=== PATIENT | male | born 1975 | race Caucasian/White ===

== ENCOUNTER 2022-10-08 16:10 | Inpatient (IN) | payer SELFPAY ==
[2022-10-08 16:41] LABS: #Eosinphils 0.3 thou/uL (0.0-0.7); #Lymphocytes 2.8 thou/uL (1.20-3.40); #Monocytes 0.8 thou/uL (0.11-0.59); #Neutrophils 4.3 thou/uL (1.40-6.50); %Basophils 0.5 % (0.0-1.0); %Eosinophils 4.1 % (0.0-10.0); %Lymphocytes 33.4 % (21.0-51.0); %Monocytes 10.1 % (0.0-10.0); %Neutrophils 51.8 % (42.0-75.0); Hemoglobin 15.5 g/dL (14.0-18.0); Mean Corpuscular Hemoglobin 32.7 pg (27.0-31.0); Mean Corpuscular Volume 98.9 fl (78.0-98.0); Mean Platelet Volume 7.9 fL (7.4-10.4); Platelet Count 193 10x3/uL (130-400); RBC Distribution Width 12.3 % (11.5-14.5); Red Blood Cell (RBC) Count 4.74 mill/uL (4.70-6.10); White Blood Cell (WBC) Count 8.2 10x3/uL (4.8-10.8)
[2022-10-08 16:53] LABS: PTT 35.1 sec (22.9-36.1); Prothrombin Time 13.1 sec (12.0-14.7)
[2022-10-08 17:12] LABS: ALT (SGPT) 8 U/L (8-55); AST (SGOT) 17 U/L (5-34); Acetaminophen Less than 10.0 mcg/mL (10.0-30.0); Albumin 4.3 g/dL (3.5-5.0); Alcohol Less than 10 mg/dL (Less than 10); Alkaline Phosphatase 63 U/L (40-110); Anion Gap 12 mmol/L (10-20); BUN (Urea Nitrogen) 12 mg/dL (8.9-20.6); Bilirubin, Total 0.3 mg/dL (0.2-1.2); CK (CPK) 117 U/L (30-200); Calc. Creatinine Clearance 0 mL/min (70-130); Calcium 8.8 mg/dL (7.8-10.44); Carbon Dioxide 22 mmol/L (22-29); Chloride 107 mmol/L (98-107); Estimated GFR 82; Globulin 2.6 g/dL (2.4-3.5); Glucose 96 mg/dL (70-105); Potassium 3.8 mmol/L (3.5-5.1); Protein, Total 6.9 g/dL (6.0-8.3); Salicylate Less than 8.0 mg/dL (15.0-30.0); Sodium 137 mmol/L (136-145)
[2022-10-08 17:13] LABS: Bilirubin Negative (Negative); Blood, Urine Negative (Negative); Clarity Clear (Clear); Glucose, Urine (Dipstick) Normal (Negative); Ketone, Urine Negative (Negative); Leukocyte Negative Leu/uL (Negative); Nitrite Negative (Negative); Protein, Urine (Dipstick) Negative (Neg-Trace); Specific Gravity, Urine 1.007 (1.002-1.036); Urobilinogen Normal mg/dL (Less than 2)
[2022-10-08 17:22] LABS: Amphetamine Not Detected (NotDetected); Barbiturates Screen Not Detected (NotDetected); Benzodiazepine Screen Not Detected (NotDetected); Cocaine Metabolite Screen Not Detected (NotDetected); Methadone Not Detected (NotDetected); Methamphetamine Not Detected (NotDetected); Opiate Screen Not Detected (NotDetected); Oxycodone Screen Not Detected (NotDetected); Phencyclidine (PCP) Not Detected (NotDetected); THC/Cannabinoid Screen Not Detected (NotDetected); Tricyclic Screen Not Detected (NotDetected)
[2022-10-08 19:03] LABS: SARS-CoV-2 NAA Rapid Test Not Detected (NotDetected)
[2022-10-08] MEDS ORDERED: NOREPINEPHRINE 8 MG/250 ML-D5W 250 ML ONE (19:03)
[2022-10-08] MEDS ORDERED: Ondansetron PF 4 MG/2 ML Vial IVP PRN (19:28)
[2022-10-08] MEDS ORDERED: Acetaminophen 325 MG TAB PO PRN (19:28)
[2022-10-08] MEDS ORDERED: Thiamine HCl 200 MG/2 ML VIAL SLOW IVP SCH (19:45)
[2022-10-08] MEDS ORDERED: niCARdipine 25 MG/10 ML VIAL ONE (20:01)
[2022-10-08] MEDS ORDERED: Labetalol HCl 100 MG/20 ML VIAL ONE (20:17)
[2022-10-08] MEDS: niCARdipine 25 MG in Sodium Chloride 0.9% 250 ML 250 ML IVPB PRN (21:51)
[2022-10-08] MEDS: Famotidine 20 MG TAB PO SCH (21:58)
[2022-10-09] MEDS: niCARdipine 25 MG in Sodium Chloride 0.9% 250 ML 250 ML IVPB PRN ×3 (00:58→04:45)
[2022-10-09 05:59] VITALS: BMI 21.7
[2022-10-09 07:45] LABS: Anion Gap 11 mmol/L (10-20); BUN (Urea Nitrogen) 8 mg/dL (8.9-20.6); Calc. Creatinine Clearance 113 mL/min (70-130); Calcium 8.8 mg/dL (7.8-10.44); Carbon Dioxide 22 mmol/L (22-29); Chloride 110 mmol/L (98-107); Cholesterol 145 mg/dl (< 200 Desired); Estimated GFR 106; Glucose 108 mg/dL (70-105); HDL Cholesterol 71 mg/dL (>60 Neg Risk); LDL Cholesterol, Calculated 65 mg/dL; Sodium 139 mmol/L (136-145); Triglycerides 44 mg/dL (Less than 150)
[2022-10-09 07:55] LABS: #Eosinphils 0.3 thou/uL (0.0-0.7); #Lymphocytes 1.8 thou/uL (1.20-3.40); #Monocytes 0.7 thou/uL (0.11-0.59); #Neutrophils 7.9 thou/uL (1.40-6.50); %Basophils 0.4 % (0.0-1.0); %Eosinophils 2.5 % (0.0-10.0); %Monocytes 6.8 % (0.0-10.0); %Neutrophils 73.3 % (42.0-75.0); Hemoglobin 15.5 g/dL (14.0-18.0); Mean Corpuscular HGB CONC 32.4 g/dL (32.0-36.0); Mean Corpuscular Hemoglobin 32.3 pg (27.0-31.0); Mean Corpuscular Volume 99.6 fl (78.0-98.0); Mean Platelet Volume 8.1 fL (7.4-10.4); Platelet Count 200 10x3/uL (130-400); RBC Distribution Width 12.4 % (11.5-14.5); White Blood Cell (WBC) Count 10.7 10x3/uL (4.8-10.8)
[2022-10-09 08:10] LABS: Hemoglobin A1c 4.9 % (4.0-6.0)
[2022-10-09] MEDS: Folic Acid 1 MG TAB PO SCH (08:23)
[2022-10-09] MEDS: Famotidine 20 MG TAB PO SCH ×2 (08:23→20:18)
[2022-10-09] MEDS: Thiamine 100 MG TAB PO SCH (08:24)
[2022-10-09] MEDS: Multivitamin W/ Minerals 1 TAB PO SCH (08:24)
[2022-10-09] MEDS: Lisinopril 5 MG TAB PO SCH ×2 (08:24→10:04)
[2022-10-09] MEDS: Labetalol HCl 100 MG/20 ML VIAL SLOW IVP PRN ×3 (09:12→22:22)
[2022-10-09] MEDS: Dextrose 5 % And 0.9 % NaCl 1,000 ML IV SCH ×2 (12:54→22:21)
[2022-10-09] MEDS ORDERED: Electrolyte Replacement Protocol 1 EACH FS PRN (19:30)
[2022-10-09] MEDS ORDERED: Atorvastatin Calcium 40 MG TAB PO SCH (21:00)
[2022-10-10] MEDS: Labetalol HCl 100 MG/20 ML VIAL SLOW IVP PRN ×6 (04:29→23:10)
[2022-10-10 07:20] LABS: #Eosinphils 0.3 thou/uL (0.0-0.7); #Lymphocytes 2.5 thou/uL (1.20-3.40); #Monocytes 0.9 thou/uL (0.11-0.59); #Neutrophils 4.9 thou/uL (1.40-6.50); %Basophils 0.1 % (0.0-1.0); %Eosinophils 3.1 % (0.0-10.0); %Monocytes 10.3 % (0.0-10.0); %Neutrophils 57.4 % (42.0-75.0); Anion Gap 11 mmol/L (10-20); BUN (Urea Nitrogen) 11 mg/dL (8.9-20.6); Calc. Creatinine Clearance 97 mL/min (70-130); Calcium 8.8 mg/dL (7.8-10.44); Carbon Dioxide 21 mmol/L (22-29); Chloride 110 mmol/L (98-107); Estimated GFR 91; Glucose 101 mg/dL (70-105); Hemoglobin 15.2 g/dL (14.0-18.0); Magnesium 2.1 mg/dL (1.6-2.6); Mean Corpuscular HGB CONC 34.9 g/dL (32.0-36.0); Mean Corpuscular Hemoglobin 35.1 pg (27.0-31.0); Mean Platelet Volume 8.1 fL (7.4-10.4); Platelet Count 180 10x3/uL (130-400); Potassium 4.4 mmol/L (3.5-5.1); RBC Distribution Width 12.4 % (11.5-14.5); Red Blood Cell (RBC) Count 4.32 mill/uL (4.70-6.10); Sodium 138 mmol/L (136-145); White Blood Cell (WBC) Count 8.5 10x3/uL (4.8-10.8)
[2022-10-10] MEDS ORDERED: Dextrose 5 % And 0.9 % NaCl 1,000 ML IV SCH (09:15)
[2022-10-10] MEDS: Famotidine 20 MG TAB PO SCH ×2 (09:45→21:02)
[2022-10-10] MEDS: Folic Acid 1 MG TAB PO SCH (09:45)
[2022-10-10] MEDS: Lisinopril 5 MG TAB PO SCH ×3 (09:45→21:02)
[2022-10-10] MEDS: Thiamine 100 MG TAB PO SCH (09:46)
[2022-10-10] MEDS: Multivitamin W/ Minerals 1 TAB PO SCH (09:46)
[2022-10-10] MEDS ORDERED: Nicotine 14 MG PATCH TD SCH (20:15)
[2022-10-10] MEDS ORDERED: Lisinopril 5 MG TAB PO SCH (23:00)
[2022-10-10] MEDS: hydrALAZINE 20 MG/ML VIAL SLOW IVP PRN (23:12)
[2022-10-11] MEDS: hydrALAZINE 20 MG/ML VIAL SLOW IVP PRN (03:02)
[2022-10-11 05:54] LABS: #Eosinphils 0.4 thou/uL (0.0-0.7); #Lymphocytes 2.7 thou/uL (1.20-3.40); #Neutrophils 7.4 thou/uL (1.40-6.50); %Basophils 0.4 % (0.0-1.0); %Eosinophils 3.4 % (0.0-10.0); %Lymphocytes 23.4 % (21.0-51.0); %Neutrophils 63.8 % (42.0-75.0); Hemoglobin 15.4 g/dL (14.0-18.0); Mean Corpuscular HGB CONC 32.9 g/dL (32.0-36.0); Mean Corpuscular Hemoglobin 32.8 pg (27.0-31.0); Mean Corpuscular Volume 99.7 fl (78.0-98.0); Platelet Count 186 10x3/uL (130-400); RBC Distribution Width 12.4 % (11.5-14.5); Red Blood Cell (RBC) Count 4.68 mill/uL (4.70-6.10); White Blood Cell (WBC) Count 11.6 10x3/uL (4.8-10.8)
[2022-10-11 06:08] LABS: Anion Gap 10 mmol/L (10-20); BUN (Urea Nitrogen) 12 mg/dL (8.9-20.6); Calc. Creatinine Clearance 99 mL/min (70-130); Calcium 8.6 mg/dL (7.8-10.44); Carbon Dioxide 23 mmol/L (22-29); Chloride 107 mmol/L (98-107); Estimated GFR 93; Glucose 99 mg/dL (70-105); Potassium 4.2 mmol/L (3.5-5.1); Sodium 136 mmol/L (136-145)
[2022-10-11] MEDS: Folic Acid 1 MG TAB PO SCH (09:52)
[2022-10-11] MEDS: Famotidine 20 MG TAB PO SCH (09:52)
[2022-10-11] MEDS: Lisinopril 5 MG TAB PO SCH (09:52)
[2022-10-11] MEDS: Thiamine 100 MG TAB PO SCH (09:52)
[2022-10-11] MEDS: Multivitamin W/ Minerals 1 TAB PO SCH (09:52)
[2022-10-11 12:40] VITALS: BP 138/87; TEMP 98.1
[2022-10-11] MEDS ORDERED: FLU VACC QS2022-23(6MOS UP)/PF 60 MCG/0.5 ML SYRINGE IM ONE (22:45)
== END 2022-10-11 16:10 | disposition home or self-care (01) | DRG 65 ==
LOC: ERS 16:10 → ERHOLD 17:46 → CCU 19:20 → OBSVTOIN 19:28 → CCU 21:27 → NEURO 10-09 19:10
PROVIDERS: ADMIT Internal Medicine; ATTEND Internal Medicine
DX: I61.0 Nontraumatic intracerebral hemorrhage in hemisphere, subcortical (principal); G81.94 Hemiplegia, unspecified affecting left nondominant side; I16.1 Hypertensive emergency; I10 Essential (primary) hypertension; G51.0 Bell's palsy; F17.210 Nicotine dependence, cigarettes, uncomplicated; Z20.822 Contact with and (suspected) exposure to COVID-19; F10.20 Alcohol dependence, uncomplicated; Z91.14 Patient's other noncompliance with medication regimen
CPT/HCPCS: 36415; 70450; 71045; 74230; 80048; 80053; 80061; 80306; 80307; 81003; 82550; 83036; 83605; 83735; 84484; 85025; 85610; 85730; 86140; 86850; 86900; 86901; 93005; 96374; 96375; G0378; J0360; J3411; J7042; J7050; U0002